=== PATIENT | female | born 2000 | race Caucasian/White ===

== ENCOUNTER 2025-02-12 23:20 | Emergency (ER) | payer MEDICAID ==
[~2025-02-12] VITALS: Ht 160 cm; Wt 60.0 kg
[2025-02-12 23:31] VITALS: O2SAT 100
[2025-02-12] MEDS: KETOROLAC 15MG/ML VIAL IM ONE (23:45)
[2025-02-13] MEDS: ACETAMINOPHEN 500MG TABLET PO ONE (00:30)
[2025-02-13 02:26] VITALS: BP 105/59; PULSE 77; RESP 17; TEMP 37.3; O2SAT 99
== END 2025-02-13 02:31 | disposition home or self-care (01) ==
LOC: ER 23:20
DX: R07.89 Other chest pain (principal); N64.4 Mastodynia; Z98.82 Breast implant status
CPT/HCPCS: 71045; 99284; 71250; Z7610; J1885